=== PATIENT | female | born 1970 | race Caucasian/White ===

== ENCOUNTER 2023-05-04 17:09 | Emergency (ER) | payer BC ==
[~2023-05-04] VITALS: Ht 167.6 cm; Wt 70.8 kg
[2023-05-04 17:27] VITALS: BP_SYST 109; PULSE 105; RESP 16; TEMP 99; O2SAT 97
== END 2023-05-04 20:05 | disposition left against medical advice (07) ==
LOC: SED 17:09
DX: R05.9 Cough, unspecified (principal); R50.9 Fever, unspecified; Z53.21 Procedure and treatment not carried out due to patient leaving prior to being seen by health care provider
CPT/HCPCS: 99281